=== PATIENT | male | born 1990 | race Asian ===

== ENCOUNTER 2016-12-03 16:10 | Emergency (ER) | payer OTHER ==
[~2016-12-03] VITALS: Ht 162.6 cm; Wt 63.5 kg
[2016-12-03] MEDS ORDERED: INSUINJ47 SC (16:43)
[2016-12-03 16:58] LABS: PLATELET COUNT 286 K/uL (142-355)
[2016-12-03 17:07] LABS: POTASSIUM 4.4 mmol/L (3.6-5.2); SODIUM 126 mmol/L (136-145)
[2016-12-03 19:38] VITALS: BP 142/86; TEMP 98.1
== END 2016-12-03 19:39 | disposition home or self-care (01) ==
LOC: ED 16:10
PROVIDERS: Emergency Medicine
DX: E11.65 Type 2 diabetes mellitus with hyperglycemia (principal); H02.824 Cysts of left upper eyelid; J06.9 Acute upper respiratory infection, unspecified
CPT/HCPCS: 80053; 81000; 83036; 85027; 96365; 96366; 96375; 99285; J1815; J1956

== ENCOUNTER 2016-12-15 15:27 | Emergency (ER) | payer OTHER ==
[~2016-12-15] VITALS: Ht 162.6 cm; Wt 63.5 kg
[~2016-12-15 15:27] MED LIST: INSUINJ47 SC
[2016-12-15 15:39] VITALS: BP 158/98; TEMP 98.9
== END 2016-12-15 15:47 | disposition home or self-care (01) ==
LOC: ED 15:27
DX: L72.9 Follicular cyst of the skin and subcutaneous tissue, unspecified (principal)
CPT/HCPCS: 99281